=== PATIENT | male | born 1985 | race Caucasian/White ===

== ENCOUNTER 2020-11-22 17:33 | Emergency (ER) | payer OTHER ==
[~2020-11-22] VITALS: Ht 185.4 cm; Wt 68.0 kg
[2020-11-22] MEDS ORDERED: HYDROCODON-ACE1 EAC7 PO (19:32)
[2020-11-23 07:53] VITALS: BP 129/93
== END 2020-11-22 20:14 | disposition home or self-care (01) ==
LOC: ER 17:33
DX: M54.6 Pain in thoracic spine (principal); S62.001A Unspecified fracture of navicular [scaphoid] bone of right wrist, initial encounter for closed fracture; W18.30XA Fall on same level, unspecified, initial encounter; Y93.89 Activity, other specified; Y92.89 Other specified places as the place of occurrence of the external cause; Y99.8 Other external cause status